=== PATIENT | female | born 1970 | race Caucasian/White ===

== ENCOUNTER 2018-12-04 11:51 | Observation (INO) | payer OTHER ==
[2018-12-04 13:09] LABS: BHCG - Serum Negative (NEGATIVE); Pregs Control Background? CLEAR/WHITE (CLR/WHITE); Pregs Control Bar Appear? YES (CONTROL BAR)
[2018-12-04] MEDS ORDERED: Lidocaine 1% w/Epinephrine 1:100K 20 ML VIAL ONE (13:19)
[2018-12-04] MEDS ORDERED: Midazolam HCl 2 mg/2 ml Vial ONE (13:54)
[2018-12-04] MEDS ORDERED: Fentanyl 250 MCG/5 ML VIAL ONE (14:01)
[2018-12-04] MEDS ORDERED: Morphine 4 MG/ML VIAL ONE (14:01)
[2018-12-04] MEDS ORDERED: Clindamycin/D5W 900 mg/50 ml Premix Bag ONE (14:23)
[2018-12-04] MEDS ORDERED: Levofloxacin 500 mg/D5W 100 ml Premix Bag ONE (14:26)
[2018-12-04] MEDS ORDERED: Propofol 1,000 MG/100 ML VIAL IV ONE (14:31)
[2018-12-04] MEDS ORDERED: Fentanyl 100 MCG/2 ML VIAL ONE ×2 (15:29→15:48)
[2018-12-04] MEDS ORDERED: Ondansetron HCl/PF 4 MG/2 ML Vial IVP PRN (15:34)
[2018-12-04] MEDS ORDERED: Promethazine HCl 25 MG/ML VIAL SLOW IVP PRN (15:34)
[2018-12-04] MEDS ORDERED: Promethazine HCl 25 MG/ML VIAL IM PRN (15:34)
[2018-12-04] MEDS ORDERED: Morphine 2 MG/ML SYRINGE SLOW IVP PRN (15:44)
[2018-12-04] MEDS ORDERED: HYDROcodone/Acetaminophen 7.5/325 mg Tablet PO PRN (15:46)
[2018-12-04] MEDS ORDERED: Promethazine HCl 25 MG/ML VIAL IVPB PRN (15:47)
[2018-12-04] MEDS ORDERED: Rocuronium Bromide 10 MG/ML (10ML VIAL) ONE (16:06)
[2018-12-04] MEDS ORDERED: ePHEDrine 50 MG/ML VIAL ONE (16:06)
[2018-12-04] MEDS ORDERED: Ondansetron PF 4 MG/2 ML Vial ONE (16:06)
[2018-12-04] MEDS ORDERED: Lidocaine 1% PF 5 ML VIAL ONE (16:06)
[2018-12-04] MEDS ORDERED: PHENYLEPHRINE-NS 100 MCG/ML 10 ML SYRINGE ONE (16:06)
[2018-12-04] MEDS ORDERED: Dexamethasone 20 MG/5 ML VIAL ONE (16:06)
[2018-12-04] MEDS ORDERED: PROPOFOL 200 MG/20 ML VIAL ONE (16:06)
[2018-12-04] MEDS ORDERED: HYDROmorphone 2 MG/ML VIAL ONE (16:10)
[2018-12-04] MEDS ORDERED: HYDROmorphone 0.5 MG/0.5 ML SYRINGE SLOW IVP PRN (16:16)
[2018-12-04] MEDS ORDERED: Ondansetron PF 4 MG/2 ML Vial SLOW IVP PRN (16:20)
[2018-12-04] MEDS ORDERED: Promethazine HCl 25 MG/ML VIAL IM/IV PRN (16:22)
[2018-12-04 18:05] VITALS: BMI 28.1
[2018-12-04] MEDS: Sodium Chloride 0.45% 1,000 ML IV SCH (18:11)
[2018-12-04] MEDS: Morphine 2 MG/ML SYRINGE SLOW IVP PRN (19:20)
[2018-12-04] MEDS: HYDROcodone/Acetaminophen 7.5/325 mg Tablet PO PRN (20:19)
[2018-12-05] MEDS: HYDROcodone/Acetaminophen 7.5/325 mg Tablet PO PRN ×4 (00:41→13:26)
[2018-12-05] MEDS: Morphine 2 MG/ML SYRINGE SLOW IVP PRN ×4 (01:14→10:38)
[2018-12-05] MEDS: Sodium Chloride 0.45% 1,000 ML IV SCH (03:17)
[2018-12-05 11:49] VITALS: BP 121/75; TEMP 97.9
--- NOTE | 2018-12-05 12:13 | OP ---
DATE OF PROCEDURE: 12/04/2018 PREOPERATIVE DIAGNOSIS: Thyroid mass. POSTOPERATIVE DIAGNOSIS: Thyroid mass. PROCEDURE: Right thyroidectomy. ESTIMATED BLOOD LOSS: 10 mL. COMPLICATIONS: None. ANESTHESIA: GETA with laryngeal nerve monitor. DESCRIPTION OF PROCEDURE: The patient was taken to the operating room and placed supine on the table. General endotracheal anesthesia was obtained by the anesthesia staff. Using an indirect laryngoscope, the laryngeal bilaterally. Following this, the tube was secured to the midline and the upper lip. A shoulder roll was placed. The patient was prepped and draped in standard surgical fashion. Following this, a previous incision was identified therefore a new incision was made approximately 2 cm above the sternal notch through skin and subcutaneous tissue and the platysmal layer. Following this platysmal flaps were elevated superiorly and inferiorly. The strap muscles were identified and were in the midline. The patient had had a previous left thyroidectomy. There was no residual thyroid tissue whatsoever in the left side on the neck. On the right side, there was a large mass consistent with the ultrasound findings of a left thyroid mass; therefore the right thyroid was removed. Dissection was carried medially adjacent to the capsule of thyroid. The thyroid veins were suture ligated adjacent to the capsule. The recurrent laryngeal nerve was identified and the inferior thyroid artery, which was travelling just lateral to this was suture ligated. Following this, the superior thyroid vascular pedicle was ligated immediately adjacent to the thyroid lobe. The lobe was then allowed to be retracted medially as its attachments to the trachea and Hale's ligaments were transected. Following this, the gland in its entirety was removed and sent for permanent pathological analysis. Following this, the wound was irrigated. A drain was placed and the strap muscles were closed using Monocryl stitches, as was the platysmal layer and subcuticular layer. The skin was closed using Dermabond. The patient tolerated the procedure well. Job ID: [id number]
== END 2018-12-05 14:45 | disposition home or self-care (01) ==
LOC: SDC 11:51 → SURG A 15:43
PROVIDERS: ADMIT Otolaryngology Plastic Surgery within the Head & Neck; ATTEND Otolaryngology Plastic Surgery within the Head & Neck
PROC: 0GTK0ZZ Resection of Thyroid Gland, Open Approach (ICD-10-PCS; principal; 2018-12-04)
DX: E04.2 Nontoxic multinodular goiter (principal); E89.0 Postprocedural hypothyroidism; F41.9 Anxiety disorder, unspecified; G43.809 Other migraine, not intractable, without status migrainosus; K21.9 Gastro-esophageal reflux disease without esophagitis; F17.200 Nicotine dependence, unspecified, uncomplicated; E28.2 Polycystic ovarian syndrome; Z79.899 Other long term (current) drug therapy; Z88.0 Allergy status to penicillin; Z88.5 Allergy status to narcotic agent; Z91.048 Other nonmedicinal substance allergy status
CPT/HCPCS: 36415; 82310; 84703; 85014; 88307; 96361; 96374; 96376; G0378; J1100; J1170; J1956; J2001; J2250; J2270; J2405; J2704; J3010; J3490

== ENCOUNTER 2019-06-06 09:08 | Day surgery (SDC) | payer OTHER ==
[2019-06-05 11:15] VITALS: BMI 30.7
--- NOTE | 2019-06-06 15:02 | OP ---
DATE OF PROCEDURE: 06/06/2019 PROCEDURE PERFORMED: Esophagogastroduodenoscopy with biopsy. INDICATIONS FOR PROCEDURE: Midepigastric pain, gastroesophageal reflux disease, not responding to PPIs. DESCRIPTION OF PROCEDURE: After the risks and benefits of the procedure were explained to the patient, including risks of bleeding, infection, perforation, reactions to anesthesia, aspiration and/or pain, informed consent was obtained. The patient was then taken to the endoscopy suite, where deep sedation was administered via propofol and anesthesia support. Once adequately sedated, the patient was maneuvered into the left lateral decubitus position with introduction of the standard gastroscope into the mouth with intubation of the esophagus, stomach, and the proximal small intestines with the findings listed below. The patient tolerated the procedure well with no immediate perioperative complications. Upon conclusion of the procedure, all equipment was removed from the patient and she was transferred to Day Stay in satisfactory condition. FINDINGS: 1. Esophagus: Normal-appearing mucosa was seen in the proximal, mid, and distal esophagus in addition to the gastroesophageal junction. There was no evidence of erosions, ulcerations, mass, lesions, or active/recent bleeding. 2. Stomach: Normal-appearing mucosa was seen in the gastric cardia, fundus, body, greater curvature, and incisura. However, scattered areas of erosions, measuring 1 to 2 mm in diameter, were seen in the gastric antrum and 2 of these erosions actually had superficial clean-based ulcerations in them as well, also measuring 1 to 2 mm in size. Biopsies were taken from these ulcerations and placed in a specimen jar for evaluation. In addition to these ulcerations, increased mucosal erythema in a speckled pattern was seen in the gastric antrum in the prepyloric region, consistent with possible submucosal hemorrhage in a petechiae like fashion. Biopsies were taken from this region as well for evaluation. Otherwise, there was no evidence of mass, lesions, or active/recent bleeding. 3. Duodenum: Mildly increased mucosal erythema was seen in the distal bulb and proximal second portion of the duodenum, but did not have any associated erosions or ulcerations with it. Otherwise normal-appearing mucosa was seen in both the bulb and the second portion with no evidence of erosions, ulcerations, mass, lesions, or active/recent bleeding. No biopsies were taken from these focal areas of erythema. IMPRESSION: 1. Submucosal hemorrhage/petechiae like erythema seen in the gastric antrum, consistent with gastric antral vascular ectasia. 2. Scattered antral erosions with 2 superficial ulcerations, concerning for nonsteroidal anti-inflammatory drugs versus Helicobacter pylori status post biopsies. 3. No evidence of erosive reflux disease while on proton pump inhibitor. 4. Focal duodenal erythema, consistent with very mild duodenitis. RECOMMENDATIONS: 1. We will follow up on the biopsy results with repeat upper endoscopy possibly in 8 to 12 weeks to confirm healing of these gastric ulcerations. 2. We will continue PPI therapy with 40 mg daily 30 to 45 minutes before dinner. 3. Continue other current medications, but we would minimize any use of NSAIDs. 4. We would have the patient follow up in the [facility] in 4 weeks. Job ID: [id number]
== END 2019-06-06 13:42 | disposition home or self-care (01) ==
LOC: SDC 09:08
PROVIDERS: ATTEND Internal Medicine
PROC: 0DB68ZX Excision of Stomach, Via Natural or Artificial Opening Endoscopic, Diagnostic (ICD-10-PCS; principal; 2019-06-06)
DX: K21.9 Gastro-esophageal reflux disease without esophagitis (principal); K31.89 Other diseases of stomach and duodenum; I25.10 Atherosclerotic heart disease of native coronary artery without angina pectoris; I10 Essential (primary) hypertension; E78.00 Pure hypercholesterolemia, unspecified; E10.9 Type 1 diabetes mellitus without complications; Z79.82 Long term (current) use of aspirin; Z79.84 Long term (current) use of oral hypoglycemic drugs; Z79.899 Other long term (current) drug therapy; Z86.73 Personal history of transient ischemic attack (TIA), and cerebral infarction without residual deficits; Z87.891 Personal history of nicotine dependence; Z88.0 Allergy status to penicillin; Z88.5 Allergy status to narcotic agent; Z88.8 Allergy status to other drugs, medicaments and biological substances; Z91.02 Food additives allergy status
CPT/HCPCS: 88305; 88312

== ENCOUNTER 2019-08-07 14:33 | Outpatient (CLI) | payer OTHER ==
[~2019-08-07 14:33] MED LIST: Magnevist 469MG/ML 20 ML VIAL ONE
--- NOTE | 2019-08-07 15:53 | MRI ---
MR CERVICAL SPINE WITHOUT CONTRAST INDICATION: Cervical radicular pain TECHNIQUE: Multiplanar multisequence MR images were obtained of the cervical spine without contrast. COMPARISON: December 20, 2016 FINDINGS: Posterior fossa: Within normal limits. Bone marrow signal intensity: Normal Spinal alignment: Normal. Craniocervical junction: Normal appearing. Prevertebral and perivertebral soft tissues: Visualized soft tissues appear within normal limits. Vertebral levels: C2-C3: There is a small central protrusion at C2-C3 which is stable. No appreciable central canal or neural foraminal narrowing is evident. There is qtnz-[id number] left facet joint degenerative change which is stable. C3-4: There is zkvr-[id number]-kmawgtab bilateral facet joint degenerative change. There is mild broad-based disc bulge and uncovertebral hypertrophy is greater on the left inducing mild left neural foraminal narrowing which is new. C4-5: There is stable moderate bilateral facet joint degenerative change. No appreciable central can al or neural foraminal narrowing is demonstrated. C5-C6: There is a stable small central protrusion. There is mild to moderate facet joint degenerative change which is stable. No appreciable central canal or neural foraminal narrowing is evident. C6-C7:, There is an asymmetric to the right broad-based disc bulge which is stable. This is causing s table mild central canal narrowing with mild ventral contact of the spinal cord. No cord signal abnormality is evident. This in association with uncovertebral hypertrophy and facet joint degenerati ve change is inducing moderate bilateral neural foraminal narrowing which is stable. C7-T1: No appreciable central canal or neuroforaminal narrowing. IMPRESSION: 1. Icpi-xi-gqbhqwzs spondylosis of the cervical spine. 2. New mild left neural foraminal narrowing at C3-C4 due to worsening uncovertebral hypertrophy and f acet degenerative change. 3. Stable mild central canal narrowing with mild ventral cord flattening of the spinal cord at C6-7. There is stable moderate bilateral neural foraminal narrowing. 4. Stable small central disc protrusions at C5-6 and C2-C3.
--- NOTE | 2019-08-07 16:46 | MRI ---
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 M96.1 postlaminectomy syndrome, not elsewhere classified" COMPARISON: 12/20/2016 TECHNIQUE: Multiple sequences obtained in axial and sagittal planes, pre and post IV injection of gadolinium-bas ed contrast agent. FINDINGS: For the purposes of this report, it will be assumed that there are 5 lumbar-type vertebrae. Vertebral body heights are maintained. No major bone marrow signal abnormality. Conus medullaris terminates at upper L2 level. T12-L1:Normal. L1-2:Normal. L2-3:Normal L3-4:Normal L4-5:Disc desiccation. Minimal disc space narrowing. Central and bilateral paracentral shallow disc h erniation with annular fissure at that location. Mild bilateral facet DJD with ligamentum flavum thickening. No significant neural foraminal stenosis. Mild central spinal canal stenosis. L5-S1:Disc desiccation. Minimal disc space narrowing. Left hemilaminectomy defect. No central stenosi s. Surgically resected left ligamentum flavum. Enhancing postsurgical scar tissue at the left lateral recess surrounding the left S1 nerve root. Tiny left paracentral focal residual disc protrusi on surrounded by the scar tissue. No right neural foraminal stenosis. Mild left neural foraminal stenosis. Mild to moderate bilateral facet DJD, left greater than right. No major interval change overall. IMPRESSION: 1) status post left hemilaminectomy at L5-S1. 2) postsurgical scar tissue at the left lateral recess surrounding the left S1 nerve root at L5-S1. 3.) Mild degenerative disc disease at L4-5 and L5-S1. 4) no high-grade central spinal canal stenosis, or high-grade neural foraminal stenosis, at any level .
== END 2019-08-07 14:34 | disposition home or self-care (01) ==
LOC: BICMRI 14:33
PROVIDERS: ATTEND Specialist
DX: M51.17 Intervertebral disc disorders with radiculopathy, lumbosacral region (principal); M96.1 Postlaminectomy syndrome, not elsewhere classified; M47.22 Other spondylosis with radiculopathy, cervical region; M51.36 Other intervertebral disc degeneration, lumbar region; M48.02 Spinal stenosis, cervical region; M50.21 Other cervical disc displacement, high cervical region
CPT/HCPCS: 72141; 72158; A9579

== ENCOUNTER 2019-08-15 08:38 | Day surgery (SDC) | payer OTHER | END 2019-08-15 09:40 | disposition home or self-care (01) | LOC: CCL 08:38 | PROVIDERS: ATTEND Internal Medicine Cardiovascular Disease | PROC: 0JH632Z Insertion of Monitoring Device into Chest Subcutaneous Tissue and Fascia, Percutaneous Approach (ICD-10-PCS; principal; 2019-08-15) | DX: R55 Syncope and collapse (principal); R00.0 Tachycardia, unspecified; E28.2 Polycystic ovarian syndrome; K21.9 Gastro-esophageal reflux disease without esophagitis; G43.909 Migraine, unspecified, not intractable, without status migrainosus; E11.9 Type 2 diabetes mellitus without complications; I10 Essential (primary) hypertension; E89.0 Postprocedural hypothyroidism; Z86.73 Personal history of transient ischemic attack (TIA), and cerebral infarction without residual deficits; Z79.82 Long term (current) use of aspirin; Z79.84 Long term (current) use of oral hypoglycemic drugs; Z79.899 Other long term (current) drug therapy; Z88.0 Allergy status to penicillin; Z88.5 Allergy status to narcotic agent; Z91.018 Allergy to other foods | CPT/HCPCS: 33285; C1764 ==

== ENCOUNTER 2019-12-15 12:40 | Outpatient (CLI) | payer OTHER ==
--- NOTE | 2019-12-15 14:31 | MRI ---
MRI OF RIGHT ELBOW PERFORMED WITHOUT CONTRAST ENHANCEMENT: HISTORY: Elbow pain and swelling worse with activities. The biceps as well as triceps tendons are intact. The ulnar collateral ligament and common flexor tendon are normal in appearance. The lateral collateral ligament and LUCL are intact. The common extensor tendon shows some moderate tendinopathy change and some mild muscle strain related to the proximal aspect of the extensor digito rum muscle. There is some edema posterior to the common extensor tendon origin. Evidence of some red marrow reconversion incidentally seen involving the distal humerus and the proxi mal radius. Evaluation on plain films showed no abnormalities from a plain film examination of 2019. No significant joint effusion. No evidence of any significant arthritic change of the elbow joint. Ulnar nerve is normal in appearance. IMPRESSION: Moderate tendinosis of the common extensor tendon origin and evidence of some muscle strain involving extensor digitorum muscle. POS: [facility]
--- NOTE | 2019-12-15 14:48 | MRI ---
MRI OF LEFT ELBOW PERFORMED WITHOUT CONTRAST ENHANCEMENT: HISTORY: Elbow pain since October. Pain is worse with activities and positional change. COMPARISON: MRI study done of the opposite elbow. FINDINGS: The biceps as well as triceps tendons both appear intact. The ulnar collateral ligament and common flexor tendon are fairly normal in appearance. On the lateral side, the lateral collateral ligament and LUCL appear intact. There is moderate tendi nosis of the common extensor tendon origin with a mid grade partial tear present. I do not see any s igns of any muscle edema. Marrow signal change in the bones is similar to the opposite elbow. The radiocapitellar joint space is unremarkable. I do not see any articular bodies within the joint space or any significant osteophytic change. IMPRESSION: Moderate tendinosis of the common extensor tendon origin with a mid grade partial tear. POS: [facility]
== END 2019-12-15 12:41 | disposition home or self-care (01) ==
LOC: SCSMRI 12:40
PROVIDERS: ATTEND Internal Medicine
DX: M79.602 Pain in left arm (principal); M79.601 Pain in right arm; S56.512A Strain of other extensor muscle, fascia and tendon at forearm level, left arm, initial encounter; M67.824 Other specified disorders of tendon, left elbow; M67.823 Other specified disorders of tendon, right elbow; S56.511A Strain of other extensor muscle, fascia and tendon at forearm level, right arm, initial encounter

== ENCOUNTER 2021-06-06 10:11 | Outpatient (CLI) | payer BC | END 2021-06-06 10:12 | disposition home or self-care (01) | LOC: BICRAD 10:11 | PROVIDERS: ATTEND Nurse Practitioner Family | DX: M54.6 Pain in thoracic spine (principal) | CPT/HCPCS: 72072 ==

== ENCOUNTER 2022-12-01 15:02 | Outpatient (CLI) | payer MEDICARE | END 2022-12-01 15:03 | disposition home or self-care (01) | LOC: SCSMRI 15:02 | PROVIDERS: ATTEND Specialist | DX: M51.14 Intervertebral disc disorders with radiculopathy, thoracic region (principal) | CPT/HCPCS: 72146 ==

== ENCOUNTER 2023-07-09 13:27 | Outpatient (CLI) | payer MEDICARE | END 2023-07-09 13:28 | disposition home or self-care (01) | LOC: SCSMRI 13:27 | PROVIDERS: ATTEND Specialist | DX: M47.22 Other spondylosis with radiculopathy, cervical region (principal); M51.17 Intervertebral disc disorders with radiculopathy, lumbosacral region; M48.02 Spinal stenosis, cervical region | CPT/HCPCS: 72141; 72148 ==